=== PATIENT | male | born 1975 | race African-American/Black ===

== ENCOUNTER 2020-09-24 17:44 | Emergency (ER) | payer SELFPAY ==
--- OUTSIDE RECORDS SUMMARY | 2020-09-24 17:47 | XMS REPORT | Continuity of Care Document ---
:1975 Author Organization [facility] t Address [address] [place] [address] Care Team Providers Name Role Phone Dilshad PATEL Attending Clinician Problems This patient has no known problems. Allergies, Adverse Reactions, Alerts This patient has no known allergies or adverse reactions. Medications This patient has no known medications. Procedures This patient has no known procedures. Encounters Start End Encounter Admission Attending Care Care Encounter Source Date/Time Date/Time Type Type Clinicians Facility Department ID 2019-05-28 [facility]-05-28 [id number] 02:59:51 04:28:00 Stephon Acosta [id number] [place] [id number] [place] [id number] Results This patient has no known results.
--- NOTE | 2020-09-24 19:23 | RAD REPORT ---
EXAM DESCRIPTION: RAD - Hip Right 2 View - 09/24/2020 7:07 pm CLINICAL HISTORY: PAIN COMPARISON: No comparisons FINDINGS: No right hip fracture dislocation. Mild right acetabular joint spurring. IMPRESSION: No acute osseus abnormality involving the right hip.
--- NOTE | 2020-09-24 22:59 | ER ---
Nurse's Notes [facility] Name: Demetri Skelton Age: 45 yrs Sex: Male : 1975 Arrival Date: 09/24/2020 Time: 17:46 Bed Waiting Private MD: Diagnosis: Presentation: 09/24 18:17 Chief complaint: Patient states: Pain on Right buttock down right thigh x 1 month. kg Coronavirus screen: Client denies travel out of the [place] in the last 14 days. At this time, unable to obtain information related to travel outside the [place] At this time, the client does not indicate any symptoms associated with coronavirus-19. Ebola Screen: Patient negative for fever greater than or equal to 101.5 degrees Fahrenheit, and additional compatible Ebola Virus Disease symptoms Patient denies exposure to infectious person. Patient denies travel to an Ebola-affected area in the 21 days before illness onset. No symptoms or risks identified at this time. Initial Sepsis Screen: Does the patient meet any 2 criteria? No. Patient's initial sepsis screen is negative. Does the patient have a suspected source of infection? No. Patient's initial sepsis screen is negative. Risk Assessment: Do you want to hurt yourself or someone else? Patient reports no desire to harm self or others. Onset of symptoms was August 24, 2020. 18:17 Method Of Arrival: Ambulatory kg 18:17 Acuity: DEREK 4 kg Triage Assessment: 18:20 General: Appears in no apparent distress. Behavior is calm, cooperative, appropriate kg for age, quiet. Pain: Complains of pain in right gluteus priscilla, Right thigh, right leg. Historical: - Allergies: 18:20 TB test; kg - Home Meds: 18:20 None [Active]; kg - PMHx: 18:20 None; kg - PSHx: 18:20 None; kg - Immunization history:: Adult Immunizations up to date, Client reports receiving the 2nd dose of the Covid vaccine, Date received: July 02, 2020 [place] Client reports receiving the 1st dose of the Covid vaccine, June 07, 2020 [employer]. - Social history:: Smoking status: Patient denies any tobacco usage or history of. Patient uses alcohol, occasionally. Screenin:24 Abuse screen: Denies threats or abuse. Denies injuries from another. Nutritional kg screening: No deficits noted. Tuberculosis screening: No symptoms or risk factors identified. Fall Risk None identified. No fall in past 12 months (0 pts). No secondary diagnosis (0 pts). No IV (0 pts). Ambulatory Aid- None/Bed Rest/Nurse Assist (0 pts). Gait- Normal/Bed Rest/Wheelchair (0 pts) Mental Status- Oriented to own ability (0 pts). Total Dorado Fall Scale indicates No Risk (0-24 pts). Vital Signs: 18:17 Pulse 20; Resp 20; Temp 97.0; Pulse Ox 97% on R/A; Weight 167.83 kg (R); Height 6 ft. 3 kg in. (190.50 cm) (R); Pain 8/10; 18:17 Body Mass Index 46.25 (167.83 kg, 190.50 cm) kg ED Course: 17:46 Patient arrived in ED. as 18:20 Triage completed. kg 18:20 Arm band placed on left wrist. kg 18:24 Patient has correct armband on for positive identification. kg 19:07 XRAY Hip RIGHT 2 view In Process Unspecified. EDMS Administered Medications: No medications were administered Outcome: 22:59 Patient left the ED. kg Signatures: Dispatcher [employer] EDMS Marlena Fitzgerald Kristen, RN RN kg Corrections: (The following items were deleted from the chart) 18:23 18:20 PSHx: Unable to Obtain; kg kg
[2020-09-24 23:14] VITALS: TEMP 97; O2SAT 97
== END 2020-09-24 22:59 | disposition left against medical advice (07) ==
LOC: ER 17:44
DX: Z53.21 Procedure and treatment not carried out due to patient leaving prior to being seen by health care provider (principal)
CPT/HCPCS: 99282